=== PATIENT | female | born 1930 | race Caucasian/White ===

== ENCOUNTER → 2016-11-22 | Outpatient (CLI) | payer MEDICARE ==
[~2016-11-22] MED LIST: ASPI-496 PO; ATOR10TA PO; FERR324T5 PO; FURO20TA3 PO; HYDR-3240 PO; LOSA50TA2 PO; OMNIPAQUE 350 MG/ML, 100ML BOTTLE ONE; OXYC5TAB3 PO; POTA10TA PO; POTA10TA11 PO; WARF5TAB7 PO-COUM
== END | disposition home or self-care (01) ==
LOC: CFH 11:11
PROVIDERS: ATTEND Specialist
DX: C50.919 Malignant neoplasm of unspecified site of unspecified female breast (principal); R91.1 Solitary pulmonary nodule; K76.9 Liver disease, unspecified
CPT/HCPCS: 71260; 74160; Q9967

== ENCOUNTER → 2016-11-22 | Outpatient (CLI) | payer MEDICARE ==
[~2016-11-22] MED LIST changes: -OMNIPAQUE 350 MG/ML, 100ML BOTTLE ONE
== END | disposition home or self-care (01) ==
LOC: PETCFH 11:13
PROVIDERS: ATTEND Specialist
DX: C79.51 Secondary malignant neoplasm of bone (principal); C50.919 Malignant neoplasm of unspecified site of unspecified female breast
CPT/HCPCS: 78306; A9503

== ENCOUNTER → 2017-06-02 | Outpatient (CLI) | payer MEDICARE ==
[~2017-06-02] MED LIST changes: +OMNIPAQUE 350 MG/ML, 100ML BOTTLE ONE
== END | disposition home or self-care (01) ==
LOC: CFH 10:39
PROVIDERS: ATTEND Specialist
DX: K76.89 Other specified diseases of liver (principal); C50.919 Malignant neoplasm of unspecified site of unspecified female breast; C79.51 Secondary malignant neoplasm of bone; Z92.21 Personal history of antineoplastic chemotherapy
CPT/HCPCS: 71260; 74160; Q9967

== ENCOUNTER → 2017-06-02 | Outpatient (CLI) | payer MEDICARE ==
[~2017-06-02] MED LIST changes: -OMNIPAQUE 350 MG/ML, 100ML BOTTLE ONE
== END | disposition home or self-care (01) ==
LOC: PETCFH 10:37
PROVIDERS: ATTEND Specialist
DX: C50.919 Malignant neoplasm of unspecified site of unspecified female breast (principal); C79.51 Secondary malignant neoplasm of bone; Z96.643 Presence of artificial hip joint, bilateral
CPT/HCPCS: 78306; A9503

== ENCOUNTER → 2018-04-17 | Outpatient (CLI) | payer MEDICARE ==
[~2018-04-17] MED LIST changes: +OMNIPAQUE 350 MG/ML, 100ML BOTTLE ONE; +WARF-36 PO-COUM; -WARF5TAB7 PO-COUM
== END | disposition home or self-care (01) ==
LOC: CFH 09:45
PROVIDERS: ATTEND Specialist
DX: C50.919 Malignant neoplasm of unspecified site of unspecified female breast (principal); R16.0 Hepatomegaly, not elsewhere classified
CPT/HCPCS: 71260; 74160; Q9967

== ENCOUNTER → 2018-04-20 | Outpatient (CLI) | payer MEDICARE ==
[~2018-04-20] MED LIST changes: -OMNIPAQUE 350 MG/ML, 100ML BOTTLE ONE
== END | disposition home or self-care (01) ==
LOC: CFH 09:00
PROVIDERS: ATTEND Specialist
DX: Z13.820 Encounter for screening for osteoporosis (principal); M85.89 Other specified disorders of bone density and structure, multiple sites; C50.919 Malignant neoplasm of unspecified site of unspecified female breast; Z87.891 Personal history of nicotine dependence; Z88.0 Allergy status to penicillin
CPT/HCPCS: 77080